=== PATIENT | male | born 1985 | race Caucasian/White ===

== ENCOUNTER 2019-07-11 19:31 | Emergency (ER) | payer BC ==
[2019-07-11] MEDS ORDERED: LIDOCAINE 1% 10 ML VIAL INJ ONE (19:48)
[2019-07-11 19:53] VITALS: TEMP 100.1; O2SAT 96
[2019-07-11] MEDS ORDERED: IODOFORM PACKING 1/2 INCH 1 EA BTTL TOP ONE (19:56)
--- NOTE | 2019-07-11 20:03 | ED.PDOC ---
History of Present Illness - General Chief Complaint: Skin/Abrasion/Tear Stated Complaint: LLQ pain R/T abcess Time Seen by Provider: 07/11/19 19:59 Source: patient Exam Limitations: no limitations - History of Present Illness Initial Comments: The patient is a 34-year-old male presenting to the emergency room secondary to a left inguinal cellulitis that appears to be related to an infected sebaceous cyst. He has had multiple episodes of infection related to this. He does have a low-grade fever. He just started Bactrim yesterday. No other areas of obvious infection. He does not appear septic. Timing/Duration: 1 week Severity: moderate Improving Factors: nothing Worsening Factors: nothing Associated Symptoms: denies symptoms Allergies/Adverse Reactions: Allergies Levofloxacin [From Levaquin] Allergy (Verified 07/11/19 19:51) Home Medications: Ambulatory Orders NK 08/06/15 Review of Systems - Review of Systems Constitutional: States: fever, malaise EENTM: States: no symptoms reported Respiratory: States: no symptoms reported Cardiology: States: no symptoms reported Gastrointestinal/Abdominal: States: abdominal pain Genitourinary: States: no symptoms reported Musculoskeletal: States: no symptoms reported Skin: States: see HPI Neurological: States: no symptoms reported Endocrine: States: no symptoms reported All other Systems: No Change from Baseline Past Medical History (General) - Patient Medical History Hx Seizures: No Hx Stroke: No Hx Dementia: No Hx Asthma: No Hx of COPD: No Hx Cardiac Disorders: No Hx Congestive Heart Failure: No Hx Pacemaker: No Hx Hypertension: No Hx Thyroid Disease: No Hx Diabetes: No Hx Gastroesophageal Reflux: No Hx Renal Disease: Yes - stones Hx Cancer: No Hx of HIV: No Hx Hepatitis C: No Hx MRSA: No Surgical History: cholecystectomy - Vaccination History Hx Tetanus, Diphtheria Vaccination: No Hx Influenza Vaccination: No - Social History Hx Tobacco Use: Yes Hx Chewing Tobacco Use: Yes Hx Alcohol Use: Yes - occasional Family Medical History - Family History Father Family History: Unknown Physical Exam - Physical Exam General Appearance: Alert, No apparent distress Eye Exam: bilateral normal Ears, Nose, Throat: hearing grossly normal Neck: full range of motion Respiratory: no respiratory distress, no accessory muscle use Cardiovascular/Chest: normal peripheral pulses, regular rate, rhythm - ild tachycardia, no edema Peripheral Pulses: radial,right: 2+, radial,left: 2+ Gastrointestinal/Abdominal: soft, other - left lower quadrant area of cellulitis is visible and fluctuant area is palpable. 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 He is to continue his Bactrim. After risk and benefits were explained, the patient did agree to proceed with I&D. The area was cleaned with an alcohol swab and after 3 cc of Xylocaine without epinephrine were injected for local anesthetic, a 1.5 cm incision was made over the apex. Approximately 20 cc of pepe sebaceous and purulent material were obtained. Culture was obtained. The wound was packed with iodoform gauze. He does need to be repacked daily after a shower. Once the infection is gone, he is to see his primary care doctor to have the cyst excised otherwise recurrent infections will likely occur. ER warnings are given for any significant worsening. [email or web address] [id number] Departure - Departure Clinical Impression: Infected sebaceous cyst of skin Disposition: Discharge to Home or Self Care Departure Forms: ED Discharge - Pt. Copy, Patient Portal Self Enrollment Instructions: DI for Wound Infection Diet: regular diet Activity: increase activity as tolerated Referrals: Donny Ortez MD [Primary Care Provider] - 1-2 Weeks Home Medications: Ambulatory Orders NK 08/06/15 Additional Instructions: the patient is a 34-year-old male presenting to the emergency room secondary to an infected sebaceous cyst giving surrounding cellulitis to the left lower abdomen. He is to continue his Bactrim. The area was cleaned with an alcohol swab and after 3 cc of Xylocaine without epinephrine were injected for local anesthetic, a 1.5 cm incision was made over the apex. Approximately 20 cc of pepe sebaceous and purulent material were obtained. Culture was obtained. The wound was packed with iodoform gauze. He does need to be repacked daily after a shower. Once the infection is gone, he is to see his primary care doctor to have the cyst excised otherwise recurrent infections will likely occur. ER warnings are given for any significant worsening.
[2019-07-11 20:11] VITALS: BP 156/88
== END 2019-07-11 20:11 | disposition home or self-care (01) ==
LOC: ER 19:31
DX: L72.3 Sebaceous cyst (principal); Z87.891 Personal history of nicotine dependence